=== PATIENT | male | born 1995 | race Caucasian/White ===

== ENCOUNTER 2017-07-07 23:47 | Emergency (ER) | payer SELFPAY ==
[~2017-07-07] VITALS: Ht 165.1 cm; Wt 65.8 kg
[2017-07-08 01:36] LABS: BASOPHIL % 1.2 % (0-2); PLATELET COUNT 171 x10^3mcL (130-400); RED CELL DISTRIBUTION WIDTH 12.4 % (11.5-14.5)
[2017-07-08 01:54] LABS: CALCIUM 8.4 mg/dL (8.5-10.1); CARBON DIOXIDE 24.4 mmol/L (21-32); CHLORIDE SERUM 107 mmol/L (98-107); GFR1 > 60 mL/min; GLUCOSE SERUM 110 mg/dL (74-106); POTASSIUM SERUM 3.9 mmol/L (3.5-5.1); SODIUM SERUM 146 mmol/L (136-145)
[2017-07-08 01:58] LABS: ALKALINE PHOSPHATASE 88 U/L (46-116); ALT/SGPT 18 U/L (16-63); AST/SGOT 14 U/L (15-37); BILIRUBIN TOTAL 0.22 mg/dL (0.20-1.00); TOTAL PROTEIN, SERUM 7.7 g/dL (6.4-8.2)
[2017-07-08 05:03] VITALS: BP 107/44
[2017-07-08 05:33] LABS: AMPHETAMINE QUAL UR NONE DETECTED (NEG <=1000)
== END 2017-07-08 05:03 | disposition home or self-care (01) ==
LOC: EDBD 23:47 → ED 23:47
PROVIDERS: Emergency Medicine
DX: F10.129 Alcohol abuse with intoxication, unspecified (principal)
CPT/HCPCS: G0480; J7030